=== PATIENT | female | born 1990 | race Caucasian/White ===

== ENCOUNTER 2018-01-21 00:36 | Emergency (ER) | payer SELFPAY ==
[~2018-01-21] VITALS: Ht 165.1 cm; Wt 74.8 kg
[2018-01-21 01:03] VITALS: BP_SYST 139
[2018-01-21] MEDS ORDERED: ALBUTEROL SULFATE 0.083% 2.5 MG/3 ML VIAL.NEB IH ONE (01:45)
[2018-01-21] MEDS ORDERED: DIPHENHYDRAMINE HCL 50 MG CAPSULE PO ONE (01:45)
[2018-01-21] MEDS ORDERED: IPRATROPIUM BROM 0.5 MG/2.5 ML VIAL.NEB (ATROVENT) IH ONE (01:45)
[2018-01-21 02:09] VITALS: BP_SYST 134
== END 2018-01-21 02:09 | disposition home or self-care (01) ==
LOC: SED 00:36
DX: T78.01XA Anaphylactic reaction due to peanuts, initial encounter (principal); Z91.010 Allergy to peanuts
CPT/HCPCS: 94640; 99283; J7613